=== PATIENT | female | born 1975 | race Asian ===

== ENCOUNTER 2017-11-29 21:09 | Emergency (ER) | payer OTHER ==
[~2017-11-29] VITALS: Ht 170.2 cm; Wt 83.7 kg
[~2017-11-29 21:09] MED LIST: CEFTIN500 MG PO; COMPLETENATE T1 EACH PO; EXCEDRIN EXTRA1 EAC1 PO; PEPCID20 MG PO; ZITHROMAX500 MG PO
[2017-11-29] MEDS ORDERED: ONDANSETRON HCL INJ 2 MG/ML VIAL IV STA (21:53)
[2017-11-29] MEDS ORDERED: MORPHINE SULFATE 4 MG/ML SYR IV STA (21:53)
[2017-11-29] MEDS ORDERED: SODIUM CHLORIDE 0.9% 1000ML 1,000 ML IV STA ×2 (21:53→21:56)
[2017-11-29] MEDS ORDERED: ACETAMINOPHEN 325 MG TAB PO ONE (22:00)
[2017-11-30] MEDS ORDERED: IBUPROFEN 600 MG TAB PO STA (00:48)
[2017-11-30] MEDS ORDERED: SODIUM CHLORIDE 0.9% 500ML 500 ML IV ONE (01:00)
[2017-11-30 01:56] VITALS: BP 115/69
== END 2017-11-30 01:50 | disposition home or self-care (01) ==
LOC: FSED 21:09
DX: R50.9 Fever, unspecified (principal); R05 Cough; J10.1 Influenza due to other identified influenza virus with other respiratory manifestations; J01.00 Acute maxillary sinusitis, unspecified; J01.30 Acute sphenoidal sinusitis, unspecified
CPT/HCPCS: 70490; 72192; 80048; 80076; 80307; 81003; 81025; 83518 ×2; 83605; 85025; 87040; 87071; 87205; 87400; 99284; J2270; J2405; J7030; J7040

== ENCOUNTER 2017-12-16 15:20 | Emergency (ER) | payer OTHER ==
[~2017-12-16] VITALS: Ht 170.2 cm; Wt 82.6 kg
[2017-12-16 17:21] LABS: BASOPHILS # (AUTO) 0.1 (0.0-0.1); BASOPHILS % 0.7 % (0.0-1.0); EOSINOPHILS # (AUTO) 0.1 (0.0-0.4); EOSINOPHILS % 1.3 % (0.0-6.0); HEMATOCRIT 45.3 % (34.2-44.1); HEMOGLOBIN 15.2 g/dL (12.0-16.0); LYMPHOCYTES # (AUTO) 2.5 (1.0-3.2); LYMPHOCYTES % 36.8 % (18.0-39.1); MEAN CORPUSCULAR HEMOGLOBIN 27.9 pg (28-32); MEAN CORPUSCULAR HGB CONC 33.6 g/dL (31-35); MEAN CORPUSCULAR VOLUME 83.1 fL (81-99); MONOCYTES # (AUTO) 0.4 (0.2-0.8); MONOCYTES % 5.5 % (4.4-11.3); NEUTROPHILS # (AUTO) 3.7 (2.1-6.9); NEUTROPHILS % 55.1 % (38.7-80.0); PLATELET COUNT 254 x10e3/uL (140-360); RED BLOOD COUNT 5.45 x10e6/uL (3.6-5.1)
[2017-12-16 17:23] LABS: CLARITY,URINE CLOUDY (CLEAR); COLOR,URINE YELLOW (YELLOW)
[2017-12-16 17:24] LABS: BILIRUBIN,URINE NEGATIVE (NEGATIVE); INR 1.05; KETONES,URINE NEGATIVE (NEGATIVE); LEUKOCYTE ESTERASE ,URINE 1+ (NEGATIVE); NITRITE,URINE NEGATIVE (NEGATIVE); PROTEIN,URINE DIPSTICK NEGATIVE (NEGATIVE); PROTHROMBIN TIME 12.9 seconds (11.9-14.5); URINE UROBILINOGEN 0.2 mg/dL (0.2 - 1)
[2017-12-16 17:25] LABS: PARTIAL THROMBOPLASTIN TIME 32.9 seconds (23.8-35.5)
[2017-12-16 17:34] LABS: ALANINE AMINOTRANSFERASE 18 IU/L (0-55); ALBUMIN 4.3 g/dL (3.5-5.0); ALBUMIN/GLOBULIN RATIO 1.2 (0.8-2.0); ALKALINE PHOSPHATASE 117 IU/L (40-150); AMORPHOUS SEDIMENT,URINE FEW (FEW); ANION GAP 13.8 mmol/L (8-16); BACTERIA,URINE MANY /HPF; BLOOD UREA NITROGEN 10 mg/dL (7-26); BUN/CREATININE RATIO 12 (6-25); CALCIUM 9.8 mg/dL (8.4-10.2); CARBON DIOXIDE 24 mmol/L (22-29); CHLORIDE 104 mmol/L (98-107); CREATINE KINASE 51 IU/L (29-168); CREATININE, SERUM 0.85 mg/dL (0.57-1.11); EPITHELIAL CELLS,URINE MODERATE /LPF; EST GLOMERULAR FILTRATION RATE > 60 ML/MIN (60-); GLUCOSE 94 mg/dL (74-118); POTASSIUM 3.8 mmol/L (3.5-5.1); SODIUM 138 mmol/L (136-145)
--- NOTE | 2017-12-16 18:56 | Diagnostic Imaging Report ---
PROCEDURE: A single AP view of the chest. COMPARISON: None. INDICATIONS: CHEST PAIN THAT RADIATES TO LEFT SHOULDER AND ARM FINDINGS: Lines/tubes: None. Lungs: The lungs are well inflated and clear. There is no evidence of pneumonia or pulmonary edema. Pleura: There is no pleural effusion or pneumothorax. Heart and mediastinum: The heart and the mediastinum are unremarkable. Bones: No acute bony abnormality. IMPRESSION: 1. No acute cardiopulmonary disease. Dictated by: Jacinto Martinez M.D. on 12/16/2017 at 18:59 Electronically approved by: Jacinto Martinez M.D. on 12/16/2017 at 18:59
[2017-12-16 20:38] VITALS: BP 119/82
== END 2017-12-16 20:51 | disposition home or self-care (01) ==
LOC: ER 15:20
DX: M54.6 Pain in thoracic spine (principal); S23.3XXA Sprain of ligaments of thoracic spine, initial encounter; N30.90 Cystitis, unspecified without hematuria
CPT/HCPCS: 36415; 71045; 80053; 81001; 82550; 82553; 84484; 85025; 85610; 85730; 93005; 99284

== ENCOUNTER 2018-11-13 19:58 | Emergency (ER) | payer OTHER ==
[~2018-11-13] VITALS: Ht 170.2 cm; Wt 82.6 kg
--- OUTSIDE RECORDS SUMMARY | 2018-11-13 20:01 | XMS REPORT ---
Author Author [facility] Address Unknown Phone Unavailable Care Team Providers Care Operations Intelligence Name Role Phone Marc AGUIRRE Unavailable Unavailable Problems This patient has no known problems. Allergies, Adverse Reactions, Alerts This patient has no known allergies or adverse reactions. Medications This patient has no known medications. Results Test Description Test Time Test Comments Text Results Atomic Results Result Comments CHEST SINGLE (PORTABLE) 2017-12-16 18:59:00 [place] [address] Patient Name: FABBY VENTURA MR #: [id number] : 1975 Age/Sex: 42/F Req #: [id number] Adm Physician: Ordered by: MARY AGUIRRE MD Report #: [id number] Location: ER Room/Bed: Procedure: [id number] DX/CHEST SINGLE (PORTABLE) Exam Date: 12/16/17 Exam Time: 1815 REPORT STATUS: Signed PROCEDURE: A single AP view of the chest. COMPARISON: None. INDICATIONS: CHEST PAIN THAT RADIATES TO LEFT SHOULDER AND ARM FINDINGS: Lines/tubes: None. Lungs: The lungs are well inflated and clear. There is no evidence of pneumonia or pulmonary edema. Pleura: There is no pleural effusion or pneumothorax. Heart and mediastinum: The heart and the mediastinum are unremarkable. Bones: No acute bony abnormality. IMPRESSION: 1. No acute cardiopulmonary disease. Dictated by: Carl Martinez M.D. on 12/16/2017 at 18:59 Electronically approved by: Carl Martinez M.D. on 12/16/2017 at 18:59 Dictated By: CARL MARTINEZ MD 57 Transcribed By: GEORGINA on 12/16/171858 COPY TO: MARY AGUIRRE MD
[2018-11-13] MEDS ORDERED: ALBUTEROL SULF 0.083% NEB SOLN 3 ML NEB NEB STA (20:22)
--- NOTE | 2018-11-13 21:12 | Diagnostic Imaging Report ---
EXAMINATION: PA and lateral views of the chest. COMPARISON: None CLINICAL HISTORY: Shortness breath, cough DISCUSSION: Lines/tubes: None. Lungs: The lungs are well inflated and clear. No pneumonia or pulmonary edema. Pleura: No pleural effusion or pneumothorax. Heart and mediastinum: The cardiomediastinal silhouette is normal. Bones and soft tissues: No acute bony abnormalities. IMPRESSION: No acute cardiopulmonary abnormalities. Signed by: Dr. Hood Ye M.D. on 11/13/2018 9:08 PM
[2018-11-13 21:15] VITALS: BP 128/82
== END 2018-11-13 21:58 | disposition home or self-care (01) ==
LOC: FSED 19:58
DX: R05 Cough (principal); R06.00 Dyspnea, unspecified; J20.9 Acute bronchitis, unspecified
CPT/HCPCS: 71046; 99284

== ENCOUNTER 2020-12-08 01:38 | Emergency (ER) | payer OTHER ==
[~2020-12-08] VITALS: Ht 170.2 cm; Wt 82.6 kg
[2020-12-08] MEDS ORDERED: EPINEPHRINE 2.25% INH NEBU SOL 0.5 ML VIAL INH STA (02:04)
[2020-12-08] MEDS ORDERED: EPINEPHRINE 2.25% INH NEBU SOL 0.5 ML VIAL ONE (02:15)
[2020-12-08] MEDS ORDERED: PREDNISOLONE 15 MG/5 ML ORAL SOLUTION NG STA (02:39)
[2020-12-08] MEDS ORDERED: PREDNISONE20 MG PO (02:41)
[2020-12-08] MEDS ORDERED: AZITHROMYCIN250 MG PO (02:41)
[2020-12-08] MEDS ORDERED: PREDNISOLONE 15 MG/5 ML ORAL SOLUTION ONE (02:49)
== END 2020-12-08 02:50 | disposition home or self-care (01) ==
LOC: FSED 02:01
DX: J04.0 Acute laryngitis (principal)
CPT/HCPCS: 70360; 99283